=== PATIENT | female | born 1980 | race African-American/Black ===

== ENCOUNTER 2019-04-15 15:52 | Emergency (ER) | payer OTHER | END 2019-04-15 18:13 | disposition home or self-care (01) | LOC: JERFT 15:52 ==

== ENCOUNTER 2021-01-08 13:42 | Emergency (ER) | payer BC, OTHER ==
[2021-01-08 13:55] VITALS: BP 143/81; PULSE 73; TEMP 98.7; BMI 34.9
[2021-01-08 14:51] LABS: EOS % 1.2 % (0-4.5); HEMATOCRIT 35.7 % (32.4-45.2); HEMOGLOBIN 11.7 GM/dL (10.7-15.3); LYMPH % 44.3 % (8-40); MCH 23.9 pg (25.7-33.7); MCHC 32.7 g/dl (32.0-36.0); MEAN CELL VOLUME 73.1 fl (80-96); MEAN PLT VOLUME 8.9 fl (7.5-11.1); MONO % 7.9 % (3.8-10.2); NEUT % 45.6 % (42.8-82.8); PLATELET COUNT 193 K/MM3 (134-434); RBC 4.89 M/mm3 (3.60-5.2); RDW 14.9 % (11.6-15.6); WHITE BLOOD COUNT 5.9 K/mm3 (4.0-10.0)
[2021-01-08 14:59] LABS: INR 1.02 (0.83-1.09); PROTHROMBIN TIME (PATIENT) 12.3 SEC (9.7-13.0)
[2021-01-08 15:17] LABS: CHLORIDE 105 mmol/L (98-107); SODIUM 138 mmol/L (136-145)
[2021-01-08 15:19] LABS: ANION GAP 9 MMOL/L (8-16); BLOOD UREA NITROGEN 18.9 mg/dL (7-18); CALCIUM 9.1 mg/dL (8.5-10.1); CO2 24 mmol/L (21-32)
[2021-01-08 15:20] LABS: ALBUMIN 3.9 g/dl (3.4-5.0); GLUCOSE,RANDOM 75 mg/dL (74-106)
[2021-01-08 15:23] LABS: CREATININE 0.8 mg/dL (0.55-1.3); SGOT/AST 23 U/L (15-37); SGPT/ALT 25 U/L (13-61)
[2021-01-08 15:24] LABS: BILIRUBIN,TOTAL 0.4 mg/dL (0.2-1); TOT PROT 7.6 g/dl (6.4-8.2)
[2021-01-08 15:26] LABS: ALK PHOS 55 U/L (45-117)
[2021-01-08 15:28] LABS: N-TERMINAL BNP 32.7 pg/ml (5-125)
== END 2021-01-08 16:46 | disposition home or self-care (01) ==
LOC: JER 13:42
DX: R07.1 Chest pain on breathing (principal); R07.81 Pleurodynia
CPT/HCPCS: 36415; 71046-TC-FY; 80053; 83880; 84484; 84702; 85025; 85379; 85610; 93005; 93010; 99285-25

== ENCOUNTER 2021-07-24 14:05 | Emergency (ER) | payer BC ==
[2021-07-24 14:38] VITALS: BP 114/80; PULSE 91; TEMP 98.2; BMI 33.0
== END 2021-07-24 15:32 | disposition home or self-care (01) ==
LOC: JER 14:05
DX: J02.9 Acute pharyngitis, unspecified (principal)
CPT/HCPCS: 87070; 99283-25